=== PATIENT | female | born 1980 | race Caucasian/White ===

== ENCOUNTER 2016-09-17 13:50 | Emergency (ER) | payer SELFPAY ==
[2016-09-17 19:52] LABS: HEMOGLOBIN 12.8 gm/dl (12.3-15.3); RED BLOOD COUNT 4.74 M/UL (4.00-5.10); WHITE BLOOD COUNT 8.1 K/UL (4.5-11.0)
[2016-09-17 20:09] LABS: BUN/CREATININE RATIO 21 (0-10)
== END 2016-09-17 16:47 | disposition home or self-care (01) ==
LOC: ER1 13:50
PROVIDERS: Emergency Medicine
DX: J40 Bronchitis, not specified as acute or chronic (principal); I10 Essential (primary) hypertension; F17.200 Nicotine dependence, unspecified, uncomplicated
CPT/HCPCS: 71020; 80053; 83690; 84703; 85025; 94640; 94664; 99284

== ENCOUNTER 2021-05-27 19:25 | Emergency (ER) | payer BC ==
[~2021-05-27 19:25] MED LIST: AZITHROMYCIN500 MG PO; CEFUROXIME500 MG PO; CENTRUM COMPLE1 EACH PO; ELIQUIS5 MG PO; FERROUS SULFAT325 M2 PO; HYDROCHLOROTHIA25 MG PO; IRON 100 PLUS1 EACH PO; LISINOPRIL5 MG PO; LOPRESSOR 50 MG50 MG PO; METFORMIN HCL500 MG PO; METOPROLOL TART50 MG PO; OMNICEF 300 MG300 MG PO; PREDNISONE 20 M20 MG PO; PRINIVIL20 MG PO; PROVENTIL HFA6.7 GM INH; THERA-M CAPLET1 EAC1 PO; TYLENOL 325MG325 MG PO; VENTOLIN HFA 66.7 GM INH; Voltaren Gel 1 % TOP
[2021-05-27 20:23] LABS: HEMOGLOBIN 12.6 gm/dl (12.3-15.3); RED BLOOD COUNT 4.94 M/UL (4.00-5.10); WHITE BLOOD COUNT 22.6 K/UL (4.5-11.0)
[2021-05-27 21:11] LABS: BUN/CREATININE RATIO 14 (0-10)
[2021-05-27] MEDS ORDERED: KEFLEX CAP 250250 MG PO (23:39)
[2021-05-27] MEDS ORDERED: IBUPROFEN600 MG PO (23:39)
== END 2021-05-28 01:05 | disposition home or self-care (01) ==
LOC: ER1 19:25
PROVIDERS: Family Medicine
DX: N39.0 Urinary tract infection, site not specified (principal); Z20.822 Contact with and (suspected) exposure to COVID-19; E11.9 Type 2 diabetes mellitus without complications; I10 Essential (primary) hypertension; F17.210 Nicotine dependence, cigarettes, uncomplicated
CPT/HCPCS: 0240U; 71045; 80053; 81001; 82550; 82553; 83605; 84484; 85025; 87040; 93005; 96365; 99283; J0690; J7030

== ENCOUNTER → 2021-10-10 | Outpatient (CLI) | payer BC ==
[~2021-10-10] MED LIST changes: +IBUPROFEN600 MG PO; +KEFLEX CAP 250250 MG PO
== END ==
LOC: EXRD 08:52
DX: R74.8 Abnormal levels of other serum enzymes (principal); K80.20 Calculus of gallbladder without cholecystitis without obstruction
CPT/HCPCS: 76705

== ENCOUNTER 2021-12-10 08:33 | Emergency (ER) | payer BC ==
[2021-12-10 09:25] LABS: HEMOGLOBIN 11.4 gm/dl (12.3-15.3); RED BLOOD COUNT 4.35 M/UL (4.00-5.10)
[2021-12-10 09:54] LABS: BUN/CREATININE RATIO 27 (0-10)
== END 2021-12-10 11:35 | disposition home or self-care (01) ==
LOC: ER1 08:33
PROVIDERS: Physician Assistant
DX: O09.521 Supervision of elderly multigravida, first trimester (principal); O20.0 Threatened abortion; O24.311 Unspecified pre-existing diabetes mellitus in pregnancy, first trimester; O10.911 Unspecified pre-existing hypertension complicating pregnancy, first trimester; O99.331 Smoking (tobacco) complicating pregnancy, first trimester; Z90.49 Acquired absence of other specified parts of digestive tract; Z88.8 Allergy status to other drugs, medicaments and biological substances; Z3A.01 Less than 8 weeks gestation of pregnancy
CPT/HCPCS: 76817; 80053; 81001; 84702; 85025; 99284

== ENCOUNTER → 2021-12-12 | Outpatient (CLI) | payer BC | LOC: LAB 12:46 | DX: O20.0 Threatened abortion (principal) | CPT/HCPCS: 36415; 84702 ==